=== PATIENT | female | born 1960 | race African-American/Black ===

== ENCOUNTER 2022-02-01 03:57 | Day surgery (SDC) | payer OTHER ==
[2022-01-29 08:57] VITALS: BMI 29.3
[~2022-02-01 03:57] MED LIST: BUPIVACAINE HCL/PF 0.25% (2.5MG/ML) 10 ML VIAL IJ ONE
[2022-02-01] MEDS ORDERED: BUPIVACAINE HCL/PF 0.25% (2.5MG/ML) 10 ML VIAL ONE (07:15)
[2022-02-01] MEDS ORDERED: CEFOXITIN SODIUM 1 GM IVPB ONE (07:16)
[2022-02-01] MEDS ORDERED: cefOXitin SODIUM 2 GM VIAL (RESTRICTED TO ID) IVPB ONE (07:16)
[2022-02-01] MEDS ORDERED: ROCURONIUM BROMIDE 50 MG/5 ML SYRINGE ONE (16:40)
[2022-02-01] MEDS ORDERED: BUPIVACAINE HCL/PF 0.5% (5MG/ML) 10 ML VIAL ONE (16:48)
[2022-02-01] MEDS ORDERED: MIDAZOLAM HCL 2 MG/2 ML SINGLE DOSE VIAL ONE (17:00)
[2022-02-01] MEDS ORDERED: FENTANYL CITRATE/PF 50 MCG/ML VIAL ONE ×4 (17:00→20:27)
[2022-02-01] MEDS ORDERED: ceFAZolin SODIUM 1 GM VIAL IVPB ONE (17:20)
[2022-02-01] MEDS ORDERED: BUPIVACAINE HCL/PF 0.5% (5MG/ML) 10 ML VIAL IJ ONE (17:40)
[2022-02-01] MEDS ORDERED: SUGAMMADEX SODIUM 200 MG/2 ML VIAL ONE (18:03)
[2022-02-01] MEDS ORDERED: DEXAMETHASONE SOD PHOSPHATE 4 MG/1 ML VIAL ONE (19:11)
[2022-02-01] MEDS ORDERED: ONDANSETRON 4 MG/2 ML VIAL ONE (19:11)
[2022-02-01] MEDS ORDERED: traMADol HCL 50 MG TABLET PO PRN (19:38)
[2022-02-01] MEDS ORDERED: ACETAMINOPHEN 325 MG TABLET (FP) PO PRN (19:39)
[2022-02-01] MEDS ORDERED: ONDANSETRON 4 MG/2 ML VIAL IVPUSH PRN (19:39)
[2022-02-01] MEDS ORDERED: LACTATED RINGERS SOLUTION 1,000 ML IV SCH (19:45)
[2022-02-01] MEDS ORDERED: ALBUTEROL SO4 0.5 % INH SOLN 2.5 MG/0.5 ML VIAL.NEB. NEB SCH (19:45)
[2022-02-01] MEDS ORDERED: ALBUTEROL SO4 0.5 % INH SOLN 2.5 MG/0.5 ML VIAL.NEB. NEB PRN (20:03)
[2022-02-01] MEDS: METOCLOPRAMIDE HCL INJECTION 10 MG/2 ML VIAL IVPUSH SCH (20:11)
[2022-02-01] MEDS: SODIUM CHLORIDE 1,000 ML IV SCH ×2 (23:00→23:58)
[2022-02-01] MEDS: ONDANSETRON 4 MG/2 ML VIAL IVPUSH SCH ×2 (23:00→23:57)
[2022-02-01] MEDS: HEPARIN NA (PORCINE) 5,000 UNITS/ML 1ML VIAL SQ SCH (23:56)
[2022-02-02] MEDS: BUDESONIDE/FORMETEROL FUMARATE 80/4.5 mcg INHALER IH SCH ×2 (00:22→11:37)
[2022-02-02] MEDS: CEFAZOLIN 1 GM in DEXTROSE 5%-WATER - 50 ML IVPB SCH ×3 (02:00→11:46)
[2022-02-02] MEDS ORDERED: ACETAMINOPHEN 1000 MG/100 ML BAG IVPB SCH (02:00)
[2022-02-02] MEDS: HEPARIN NA (PORCINE) 5,000 UNITS/ML 1ML VIAL SQ SCH ×2 (02:22→11:35)
[2022-02-02] MEDS: METOCLOPRAMIDE HCL INJECTION 10 MG/2 ML VIAL IVPUSH SCH ×3 (02:22→15:30)
[2022-02-02] MEDS: ACETAMINOPHEN 1000 MG/100 ML BAG IVPB SCH ×4 (02:23→15:29)
[2022-02-02] MEDS: ONDANSETRON 4 MG/2 ML VIAL IVPUSH SCH ×3 (02:47→12:44)
[2022-02-02] MEDS ORDERED: CEFAZOLIN 1 GM in DEXTROSE 5%-WATER - 50 ML IVPB SCH (10:00)
[2022-02-02] MEDS ORDERED: PANTOPRAZOLE 20 MG TABLET PO SCH (10:00)
[2022-02-02] MEDS ORDERED: ALBUTEROL SO4 HFA INHALER IH PRN (10:00)
[2022-02-02 10:25] LABS: HEMATOCRIT 39.3 % (32.4-45.2); HEMOGLOBIN 12.6 GM/dL (10.7-15.3); MCH 30.6 pg (25.7-33.7); MEAN CELL VOLUME 95.8 fl (80-96); MEAN PLT VOLUME 8.7 fl (7.5-11.1); PLATELET COUNT 283 10^3/uL (134-434); RDW 14.3 % (11.6-15.6)
[2022-02-02 10:55] LABS: ALBUMIN 3.4 g/dl (3.4-5.0); BLOOD UREA NITROGEN 9.9 mg/dL (7-18); CALCIUM 9.1 mg/dL (8.5-10.1)
[2022-02-02 10:56] LABS: CREATININE 0.9 mg/dL (0.55-1.3)
[2022-02-02 10:57] LABS: BILIRUBIN,TOTAL 0.6 mg/dL (0.2-1); TOT PROT 6.4 g/dl (6.4-8.2)
[2022-02-02 15:16] VITALS: BP 120/77; PULSE 66; RESP 18; TEMP 97.9
== END 2022-02-02 17:35 | disposition home or self-care (01) ==
LOC: JASU-SURG 03:57 → JASUSAT 03:57 → J7W 22:03 → JASUSAT 02-02 17:35
PROVIDERS: ATTEND Internal Medicine
PROC: 0DV44ZZ Restriction of Esophagogastric Junction, Percutaneous Endoscopic Approach (ICD-10-PCS; 2022-02-01)
PROC: 0BQT4ZZ Repair Diaphragm, Percutaneous Endoscopic Approach (ICD-10-PCS; principal; 2022-02-01 08:00)
DX: K44.9 Diaphragmatic hernia without obstruction or gangrene (principal); K21.9 Gastro-esophageal reflux disease without esophagitis
CPT/HCPCS: 36415; 80053; 85027; 94010; 94760; J1644